=== PATIENT | male | born 1980 | race Caucasian/White ===

== ENCOUNTER 2017-04-05 09:04 | Inpatient (IN) | payer BC, OTHER ==
[~2017-04-05] VITALS: Ht 188 cm; Wt 123.5 kg
[2017-04-05] VITALS (13 sets, daily range): BP systolic 129–194; BP diastolic 62–90; PULSE 38–64; RESP 16–18; TEMP 97.2–98.3; O2SAT 94–100
[~2017-04-05 09:04] MED LIST: ARIP30 PO; CLON.5 PO; EFFE150C PO; MECL25 PO
[2017-04-05] MEDS ORDERED: HYDR12.57 PO (09:37)
[2017-04-05] MEDS ORDERED: ABIL30TA5 PO (09:37)
--- NOTE | 2017-04-05 10:11 | PD ---
HPI Chief Complaint: Flank/Kidney Pain Time Seen by Provider: 09:31 Travel History International Travel<30 days: No Contact w/Intl Traveler<30days: No Traveled to known affect area: No History of Present Illness HPI 37yo M with no PMH presents to the ED with c/o right sided flank/abdominal pain since 7am this morning. Pain is sharp, constant and associated with nausea and NBNB vomiting. Denies any fever, chest pain, sob, dysuria, hematuria, testicular pain, penile discharge. Denies any history of nephrolithiasis. PFSH Past Medical History Bipolar Disorder: Yes Depression: Yes Cancer: No Cardiovascular Problems: Yes (htn on meds) Diabetes: No Glaucoma: No Hepatitis: No Hiatal Hernia: No Hypertension: Yes Thyroid Disease: No Tetanus Vaccination: > 5 Years Influenza Vaccination: Yes Past Surgical History Abdominal Surgery: No Cardiac Surgery: No Ear Surgery: No Endocrine Surgery: No Genitourinary Surgery: No Gynecologic Surgery: No Oral Surgery: No Pacemaker: No Thoracic Surgery: No Other Surgery: Yes Social History Alcohol Use: No Tobacco Use: No Substance Use: No Allergies-Medications (Allergen,Severity, Reaction): Coded Allergies: No Known Allergies (Verified Allergy, Unknown, 04/05/17) Reported Meds & Prescriptions Reported Meds & Active Scripts Active Reported Hydrochlorothiazide 12.5 Mg Cap Unknown Dose PO DAILY Abilify (Aripiprazole) 30 Mg Tab 30 Mg PO DAILY Review of Systems Except as stated in HPI: all other systems reviewed are Neg Physical Exam Narrative GENERAL: 37yo M in moderate distress. SKIN: Focused skin assessment warm/dry. HEAD: Atraumatic. Normocephalic. CARDIOVASCULAR: Regular rate and rhythm. No murmur appreciated. RESPIRATORY: No accessory muscle use. Clear to auscultation. Breath sounds equal bilaterally. GASTROINTESTINAL: Abdomen soft, +TTP right flank > RUQ, RLQ. No rebound tenderness or guarding. MUSCULOSKELETAL: No obvious deformities. No clubbing. No cyanosis. No edema. NEUROLOGICAL: Awake and alert. No obvious cranial nerve deficits. Motor grossly within normal limits. Normal speech. PSYCHIATRIC: Appropriate mood and affect; insight and judgment normal. Data Data Last Documented VS Vital Signs Date Time Temp Pulse Resp B/P (MAP) Pulse Ox O2 Delivery O2 Flow Rate FiO2 04/05/17 12:52 59 18 166/79 (108) 97 Room Air 04/05/17 09:23 97.2 Orders Orders Urinalysis - C+S If Indicated (04/05/17 09:19) Complete Blood Count With Diff (04/05/17 10:07) Comprehensive Metabolic Panel (04/05/17 10:07) Lipase (04/05/17 10:07) Prothrombin Time / Inr (Pt) (04/05/17 10:07) Act Partial Throm Time (Ptt) (04/05/17 10:07) Ct Abd/Pel W Iv Contrast(Rout) (04/05/17 10:07) Iv Access Insert/Monitor (04/05/17 10:07) Ecg Monitoring (04/05/17 10:07) Oximetry (04/05/17 10:07) Sodium Chloride 0.9% Flush (Ns Flush) (04/05/17 10:15) Ondansetron Inj (Zofran Inj) (04/05/17 10:15) Ketorolac Inj (Toradol Inj) (04/05/17 10:15) Sodium Chlor 0.9% 1000 Ml Inj (Ns 1000 M (04/05/17 10:15) Morphine Inj (Morphine Inj) (04/05/17 11:30) Chest, Single Ap (04/05/17 ) Electrocardiogram (04/05/17 ) Consult Cardiology (04/05/17 ) Admit Order (Ed Use Only) (04/05/17 13:14) Labs Laboratory Tests Test 04/05/17 10:05 04/05/17 10:15 Urine Collection Type CLEAN CATCH Urine Color YELLOW Urine Turbidity CLEAR Urine pH 8.5 Urine Specific [place] 1.012 Urine Protein TRACE mg/dL Urine Glucose (UA) NEG mg/dL Urine Ketones TRACE mg/dL Urine Occult Blood NEG Urine Nitrite NEG Urine Bilirubin NEG Urine Leukocyte Esterase NEG Urine RBC 0-3 /hpf Urine Squamous Epithelial Cells 0-5 /hpf Microscopic Urinalysis Comment CULT NOT INDICATED Urine Collection Time 10:05 White Blood Count 11.5 TH/MM3 Red Blood Count 5.48 MIL/MM3 Hemoglobin 15.6 GM/DL Hematocrit 46.7 % Mean Corpuscular Volume 85.3 FL Mean Corpuscular Hemoglobin 28.6 PG Mean Corpuscular Hemoglobin Concent 33.5 % Red Cell Distribution Width 13.3 % Platelet Count 318 TH/MM3 Mean Platelet Volume 8.4 FL Neutrophils (%) (Auto) 64.4 % Lymphocytes (%) (Auto) 25.9 % Monocytes (%) (Auto) 7.8 % Eosinophils (%) (Auto) 1.2 % Basophils (%) (Auto) 0.7 % Neutrophils # (Auto) 7.4 TH/MM3 Lymphocytes # (Auto) 3.0 TH/MM3 Monocytes # (Auto) 0.9 TH/MM3 Eosinophils # (Auto) 0.1 TH/MM3 Basophils # (Auto) 0.1 TH/MM3 CBC Comment DIFF FINAL Differential Comment Prothrombin Time 10.9 SEC Prothromb Time International Ratio 1.0 RATIO Activated Partial Thromboplast Time 27.5 SEC Blood Urea Nitrogen 13 MG/DL Creatinine 1.20 MG/DL Random Glucose 121 MG/DL Total Protein 8.2 GM/DL Albumin 4.4 GM/DL Calcium Level 10.5 MG/DL Alkaline Phosphatase 71 U/L Aspartate Amino Transf (AST/SGOT) 21 U/L Alanine Aminotransferase (ALT/SGPT) 42 U/L Total Bilirubin 1.0 MG/DL Sodium Level 141 MEQ/L Potassium Level 3.7 MEQ/L Chloride Level 105 MEQ/L Carbon Dioxide Level 25.3 MEQ/L Anion Gap 11 MEQ/L Estimat Glomerular Filtration Rate 68 ML/MIN Lipase 135 U/L [facility] Medical Decision Making Medical Screen Exam Complete: Yes Emergency Medical Condition: Yes Interpretation(s) EKG: Supraventricular bradycardia at 40bpm. Normal axis. There are some p waves but not in front of each QRS. Differential Diagnosis Nephrolithiasis vs. pyelonephritis vs. pancreatitis vs. cholecystitis vs. appendicitis Narrative Course 37yo M here with right sided flank pain since 7am this morning. Impression is nephrolithiasis. Labs reviewed, WBC 11.5. Calcium mildly elevated at 10.5. Lipase normal. UA showed trace ketones. No leukocyte. CT a/p showed 3mm stone right UVJ with mild to moderate obstruction. Pt given toradol but still with pain. Pt given morphine with improvement of pain. Nausea improved after zofran and NS IVF. It was noted that pt's heart rate went down to the 30s on the monitor. EKG showed supraventricular bradycardia with p waves in some QRS complex and NV shortening. Pt denies any chest pain or sob. He is adopted and not sure about family history. Last EKG was NSR in the 80s with 1st AV block. Pt noted to have low O2 sat in the high 80s to low 90. Pt given 2L NC. Denies any chest pain or sob. Abdominal pain has improved after morphine. CXR showed mild cardiac prominence. Feel that pt needs a cardiology evaluation and discussed with Dr. Hassan who is aware pt is being transferred to [facility]. Discussed with Dr. Dillon who accepted the patient to her service. Critical Care Narrative Aggregate critical care time was 50 minutes. Time to perform other separately billable procedures was not included in the critical care time. My time did not include minutes spent treating any other patients simultaneously or on activities that did not directly contribute to the patient's treatment. The services I provided to this patient were to treat and/or prevent clinically significant deterioration that could result in: cardiovascular collapse or . I provided critical care services requiring my management, as noted below: Chart data review, documentation time, medication orders and management, vital sign assessments/reviewing monitor data, ordering and reviewing lab tests, ordering and interpreting/reviewing x-rays and diagnostic studies, care of the patient and discussion of the patient with the admitting physicians. Diagnosis Primary Impression: Bradyarrhythmia Additional Impression: Nephrolithiasis Admitting Information Admitting Physician Requests: Admit Scripts Hydrocodone/Acetaminophen (Hydrocodone-Acetamin 5-325 mg) 5 Mg-325 Mg Tablet 1 TAB PO Q6HR Y for pain, #12 TAB Prov: Shelby Lao MD 04/06/17 Yarely Smith DO Apr 05, 2017 10:11
[2017-04-05 10:13] LABS: BLOOD, URINE NEG (NEG); GLUCOSE,URINE NEG (NEG); KETONE, URINE TRACE mg/dL (NEG); NITRITE,URINE NEG (NEG); PH, URINE 8.5 (5.0-8.5)
[2017-04-05] MEDS ORDERED: SODIUM CHLOR 0.9% 1000 ML INJ 1,000 ML IV ONE (10:15)
[2017-04-05] MEDS ORDERED: SODIUM CHLORIDE 0.9% FLUSH 10 ML FLUSH IV FLUSH PRN ×2 (10:15→14:30)
[2017-04-05] MEDS ORDERED: KETOROLAC TROMETHAMINE 30 MG/ML (IVP) VIAL IV PUSH ONE (10:15)
[2017-04-05] MEDS ORDERED: ONDANSETRON HCL 4 MG/2 ML VIAL IV PUSH ONE (10:15)
[2017-04-05 10:19] LABS: METHOD OF COLLECTION CLEAN CATCH; URINE COLOR YELLOW (YELLW/STRAW)
[2017-04-05 10:20] LABS: COMMENT (UR) CULT NOT INDICATED; CULTURE IF INDICATED CULT NOT INDICATED; RBC, URINE 0-3 /hpf (0-3); SQUAMOUS EPITHELIAL CELL URINE 0-5 /hpf (0-5)
[2017-04-05 10:25] LABS: AUTOMATED NEUTROPHIL # 7.4 TH/MM3 (1.8-7.7); BASOPHIL # 0.1 TH/MM3 (0-0.2); BASOPHIL % 0.7 % (0.0-2.0); EOSINOPHIL # 0.1 TH/MM3 (0-0.4); EOSINOPHIL % 1.2 % (0.0-4.0); HEMATOCRIT 46.7 % (39.0-51.0); HEMO FLAGS DIFF FINAL; LYMPH % 25.9 % (9.0-44.0); MEAN CELL VOLUME 85.3 FL (80.0-100.0); MEAN CORPUSCULAR HEMOGLOBIN 28.6 PG (27.0-34.0); MEAN CORPUSCULAR HGB CONC 33.5 % (32.0-36.0); MONO % 7.8 % (0.0-8.0); NEUT % 64.4 % (16.0-70.0); PLATELET COUNT 318 TH/MM3 (150-450); RED BLOOD COUNT 5.48 MIL/MM3 (4.50-5.90); RED CELL DISTRIBUTION WIDTH 13.3 % (11.6-17.2); WHITE BLOOD COUNT 11.5 TH/MM3 (4.0-11.0)
[2017-04-05] MEDS ORDERED: IOHEXOL 350 MG/ML 10 ML VIAL (for RAD DIAG) IVCONTRAST ONE (10:25)
[2017-04-05 10:33] LABS: CHLORIDE 105 MEQ/L (98-107); POTASSIUM 3.7 MEQ/L (3.5-5.1); SODIUM (NA) 141 MEQ/L (136-145)
[2017-04-05 10:37] LABS: APTT (PATIENT) 27.5 SEC (24.3-30.1); PROTHROMBIN TIME - PATIENT 10.9 SEC (9.8-11.6)
[2017-04-05 10:38] LABS: ANION GAP 11 MEQ/L (5-15); BICARBONATE 25.3 MEQ/L (21.0-32.0); BLOOD UREA NITROGEN 13 MG/DL (7-18)
--- NOTE | 2017-04-05 10:40 | RADRPT ---
EXAM DATE/TIME: 04/05/2017 10:25 [facility] COMPARISON: No previous studies available for comparison. INDICATIONS : Right lower quadrant pain, nausea and vomiting. IV CONTRAST: 85 cc Omnipaque 350 (iohexol) IV ORAL CONTRAST: No oral contrast ingested. RADIATION DOSE: 21.04 CTDIvol (mGy) MEDICAL HISTORY : Hypertension. SURGICAL HISTORY : None. ENCOUNTER: Initial ACUITY: 1 day PAIN SCALE: 10/10 LOCATION: Right lower quadrant TECHNIQUE: Volumetric scanning of the abdomen and pelvis was performed. Using automated exposure control and ad justment of the mA and/or kV according to patient size, radiation dose was kept as low as reasonably achievable to obtain optimal diagnostic quality images. DICOM format image data is available electro nically for review and comparison. FINDINGS: The lung basses are clear. There is mild fatty replacement to the liver The spleen, pancreas and adrenals unremarkable The left kidney is unremarkable There is perinephric stranding about the right kidney with dilated right ureter extending down to the right ureterovesical junction. 3 mm obstructing stone is evident. Prostate calcifications are evident Abdominal wall is intact There is no adenopathy CONCLUSION: 1. 3 mm stone right UVJ with [id number] obstruction. 2. No residual renal stones 3. Mild fatty replacement liver. Manuel Maloney MD FACR on April 05, 2017 at 10:36 Board Certified Radiologist. This report was verified electronically.
[2017-04-05 10:41] LABS: ALT (GPT) 42 U/L (12-78); AST (GOT) 21 U/L (15-37); GLOMERULAR FILTRATION RATE 68 ML/MIN (>89)
[2017-04-05 10:44] LABS: ALKALINE PHOSPHATASE 71 U/L (45-117)
[2017-04-05] MEDS ORDERED: MORPHINE SULFATE 8 MG/ML INJ IV PUSH ONE (11:30)
--- NOTE | 2017-04-05 12:41 | RADRPT ---
EXAM DATE/TIME: 04/05/2017 12:19 [facility] COMPARISON: No previous studies available for comparison. INDICATIONS : Right flank pain and increased blood pressure. MEDICAL HISTORY : Hypertension. SURGICAL HISTORY : None. ENCOUNTER: Initial ACUITY: 1 day PAIN SCORE: 10/10 LOCATION: Right lower chest ,upper abdoman posterior FINDINGS: A single view of the chest demonstrates the lungs to be symmetrically aerated without evidence of mas s, infiltrate or effusion. Mild prominence the cardiac silhouette. Osseous structures are intact. CONCLUSION: Mild cardiac prominence Manuel Maloney MD FACR on April 05, 2017 at 12:38 Board Certified Radiologist. This report was verified electronically.
[2017-04-05] MEDS ORDERED: NALOXONE HCL 0.4 MG/ML AMP IV PUSH PRN (14:30)
[2017-04-05] MEDS ORDERED: ONDANSETRON HCL 4 MG/2 ML VIAL IVP PRN (14:30)
[2017-04-05] MEDS ORDERED: ACETAMINOPHEN 325 MG TAB PO PRN (14:30)
[2017-04-05 15:22] LABS: CREATINE KINASE 210 U/L (39-308)
--- NOTE | 2017-04-05 17:14 | PD.CONS ---
HPI Consult Requested By Primary Care Physician Brad Donaldson MD History of Present Illness 37yo M with no PMH presents to the ED with c/o right sided flank/abdominal pain since 7am this morning. Pain is sharp, constant and associated with nausea and NBNB vomiting. Denies any fever, chest pain, palpitations syncope, sob, leg edema of family hx of sudden cardiac . Cardiology consulted because of abnormal EKG. EKG shows short [place] interval and sinus bradycardia. Review of Systems Consitutional: DENIES: Fatigue, Fever, Chills, Weight gain, Weight loss Eyes: DENIES: Amaurosis Fug[place], Change in vision HEENT: DENIES: Lightheadedness, Change in hearing Respiratory: DENIES: See HPI, Cough, Snoring, Shortness of breath, Wheezing, Sputum production Cardiovascular: DENIES: See HPI, Chest pain, Palpitations, Syncope, Tachycardia Gastrointestinal: DENIES: Nausea, Vomiting, Change in bowel habits, Reflux, Bloody stools, Melena Genitourinary: DENIES: Urinary incontinence, Difficulty voiding Integumentary: DENIES: Rash Neurologic: DENIES: Tingling or numbness, Memory problems, Poor Balance, Stroke symptoms Musculoskeletal: DENIES: Joint pain, Muscle pain, Limited range of motion, Back pain Psychiatric: DENIES: Anxiety, Depression, Sleep disturbances Hematologic: DENIES: Bruising tendencies, Bleeding tendencies Endocrine: DENIES: Weight gain, Weight loss, Thyroid disease Past Family Social History Allergies: Coded Allergies: No Known Allergies (Verified Allergy, Unknown, 04/05/17) Past Medical History Questionable history of celiac sprue at the age of 12 Steatohepatitis without fibrosis per liver biopsy 09/23/2008 Bipolar depression Gastroesophageal reflux disease Hypertension Past Surgical History Liver biopsy 09/23/2008 Colonoscopy at age 30 and 35 - initial one done for rectal bleeding revealed a polyp and a second one done at age 35 was done for follow-up and was negative. Right medial meniscus tear with arthroscopy and partial synovectomy along with repair of tear on 05/08/[address] Rupal Gastelum tooth removal Upper endoscopy age 12 Reported Medications Reported Meds & Active Scripts Active Reported Hydrochlorothiazide 12.5 Mg Cap Unknown Dose PO DAILY Abilify (Aripiprazole) 30 Mg Tab 30 Mg PO DAILY Active Ordered Medications Current Medications Medications (Trade) Dose Ordered Sig/Shay Route Start Time Stop Time Status Last Admin (NS Flush) 2 ml UNSCH PRN IV FLUSH 04/05/17 10:15 (NS Flush) 2 ml UNSCH PRN IV FLUSH 04/05/17 14:30 (NS Flush) 2 ml BID IV FLUSH 04/05/17 21:00 (Tylenol) 650 mg Q4H PRN PO 04/05/17 14:30 (Zofran Inj) 4 mg Q6H PRN IVP 04/05/17 14:30 (Narcan Inj) 0.4 mg UNSCH PRN IV PUSH 04/05/17 14:30 Family History Unknown as patient is adopted Social History Tobacco: Denies ever smoking Alcohol: Denies alcohol use Illicit Drugs: Denies illicit drug use Physical Exam Vital Signs Vital Signs Date Time Temp Pulse Resp B/P (MAP) Pulse Ox O2 Delivery O2 Flow Rate FiO2 04/05/17 16:30 98.3 53 18 140/74 (96) 96 04/05/17 15:30 82 18 129/62 (84) 98 04/05/17 14:16 53 17 154/70 (98) 97 Room Air 04/05/17 13:18 16 04/05/17 12:52 59 18 166/79 (108) 97 Room Air 04/05/17 11:40 46 16 160/68 (98) 96 Room Air 04/05/17 10:46 38 16 171/77 (108) 94 Room Air 04/05/17 10:09 96 Room Air 04/05/17 09:23 97.2 50 16 194/90 (124) 100 Physical Exam GENERAL: Well-nourished, well-developed patient. SKIN: Warm and dry. HEAD: Normocephalic. EYES: No scleral icterus. No injection or drainage. NECK: Supple, trachea midline. No JVD or lymphadenopathy. CARDIOVASCULAR: Regular rate and rhythm without murmurs, gallops, or rubs. RESPIRATORY: Breath sounds equal bilaterally. No accessory muscle use. GASTROINTESTINAL: Abdomen soft, non-tender, nondistended. EXTREMITIES: No cyanosis, or edema. NEUROLOGICAL: Awake, alert, and oriented x 3. Non-focal. Laboratory Laboratory Tests Test 04/05/17 10:05 04/05/17 10:15 04/05/17 14:45 Urine Collection Type CLEAN CATCH Urine Color YELLOW Urine Turbidity CLEAR Urine pH 8.5 Urine Specific [place] 1.012 Urine Protein TRACE Urine Glucose (UA) NEG Urine Ketones TRACE Urine Occult Blood NEG Urine Nitrite NEG Urine Bilirubin NEG Urine Leukocyte Esterase NEG Urine RBC 0-3 Urine Squamous Epithelial Cells 0-5 Microscopic Urinalysis Comment CULT NOT INDICATED Urine Collection Time 10:05 White Blood Count 11.5 Red Blood Count 5.48 Hemoglobin 15.6 Hematocrit 46.7 Mean Corpuscular Volume 85.3 Mean Corpuscular Hemoglobin 28.6 Mean Corpuscular Hemoglobin Concent 33.5 Red Cell Distribution Width 13.3 Platelet Count 318 Mean Platelet Volume 8.4 Neutrophils (%) (Auto) 64.4 Lymphocytes (%) (Auto) 25.9 Monocytes (%) (Auto) 7.8 Eosinophils (%) (Auto) 1.2 Basophils (%) (Auto) 0.7 Neutrophils # (Auto) 7.4 Lymphocytes # (Auto) 3.0 Monocytes # (Auto) 0.9 Eosinophils # (Auto) 0.1 Basophils # (Auto) 0.1 CBC Comment DIFF FINAL Differential Comment Prothrombin Time 10.9 Prothromb Time International Ratio 1.0 Activated Partial Thromboplast Time 27.5 Blood Urea Nitrogen 13 Creatinine 1.20 Random Glucose 121 Total Protein 8.2 Albumin 4.4 Calcium Level 10.5 Alkaline Phosphatase 71 Aspartate Amino Transf (AST/SGOT) 21 Alanine Aminotransferase (ALT/SGPT) 42 Total Bilirubin 1.0 Sodium Level 141 Potassium Level 3.7 Chloride Level 105 Carbon Dioxide Level 25.3 Anion Gap 11 Estimat Glomerular Filtration Rate 68 Lipase 135 Total Creatine Kinase 210 Troponin I LESS THAN 0.02 Result Diagram: 04/05/17 1015 04/05/17 1015 Imaging Last Impressions Abdomen/Pelvis CT 04/05/17 1007 Signed Impressions: Service Date/Time: Wednesday, April 05, 2017 10:25 - CONCLUSION: 1. 3 mm stone right UVJ with [id number] obstruction. 2. No residual renal stones 3. Mild fatty replacement liver. Manuel Maloney MD FACR Chest X-Ray 04/05/17 0000 Signed Impressions: Service Date/Time: Wednesday, April 05, 2017 12:19 - CONCLUSION: Mild cardiac prominence Manuel Maloney MD FACR Assessment and Plan Problem List: (1) Bradyarrhythmia ICD Codes: I49.8 - Other specified cardiac arrhythmias Status: Acute Plan: Asymptomatic bradyarrhythmia in the setting of kidney stones/infection. No events on telemetry. EKG short [place] interval but no hx of palpitations, CV complaints. Telemetry unremarkable. EKG back to baseline. Recs: Cycle cardiac markers 2Decho Telemetry Avoid electrolytes abnormalities Holter on discharge Follow with Cardiology upon discharge (2) Nephrolithiasis ICD Codes: N20.0 - Calculus of kidney Status: Acute Hassan-Darien Sales MD Apr 05, 2017 17:14
[2017-04-05] MEDS ORDERED: MORPHINE SULFATE 4 MG/ML INJ IV PUSH PRN (20:00)
[2017-04-05] MEDS ORDERED: ACETAMINOPHEN/HYDROcodone 325 MG/5 MG TAB PO PRN (20:00)
--- NOTE | 2017-04-05 20:43 | HHI.HP ---
[facility] Service [facility] Primary Care Physician Brad Donaldson MD Admission Diagnosis Supraventricular bradycardia, right UVJ stone Diagnoses: (1) Bradyarrhythmia (2) Nephrolithiasis Chief Complaint: Right flank pain Travel History International Travel<30 Days: No Contact w/Intl Traveler <30 Da: No Traveled to Known Affected Are: No History of Present Illness Mr. Parra is a very pleasant 37-year-old male with a history of hypertension, bipolar disorder, and GERD who presented to the [place] emergency room on complaining of severe right flank pain. In abdominal/pelvis ultrasound showed 3 mm stone in the right ureterovesical junction with mild to moderate obstruction and no residual stones. Mild fatty liver was also noted. While in the emergency room, he was noted to have heart rate in the 30's and supraventricular bradyarrhythmia on 12-lead EKG with short KS interval and P waves connecting to T waves with nonspecific ST changes (HR 40). His most recent EKG in our EMR prior to that was 06/12/2010 and it showed sinus rhythm and first-degree AV block and nonspecific ST-T changes. Cardiology was consulted and the patient was transferred [facility] for further evaluation and treatment. The patient is seen in his hospital room. He reports right flank pain starting last 03/30/2017 but it only lasted for a few minutes and spontaneously resolved. He had no further pain until at 7 AM this morning after urination. He states the right flank pain was sharp, shooting and severe. He rated it 10 out of 10 and stated it was accompanied by significant nausea with vomiting which has since resolved. The pain persisted and he asked his father to take him to the emergency room. He reports the pain went away after morphine was given in the ED. He states it is currently a 2 out of 10 and is creeping back up. The patient denies any recent chest pain, syncope, shortness of breath, palpitations, dizziness, lightheadedness, fatigue, or weakness. He has never been told that he has a low heart rate in the past. He is unsure of his family medical history as he is adopted. Review of Systems Except as stated in HPI: all other systems reviewed are Neg Past Family Social History Past Medical History Questionable history of celiac sprue at the age of 12 Steatohepatitis without fibrosis per liver biopsy 09/23/2008 Bipolar depression Gastroesophageal reflux disease Hypertension Denies diabetes mellitus, heart disease, irregular cardiac rhythm, asthma, COPD , hepatitis, kidney problems, nephrolithiasis, DVT, PE, CVA, thyroid dysfunction , cancer, or seizures. . Past Surgical History Liver biopsy 09/23/2008 Colonoscopy at age 30 and 35 - initial one done for rectal bleeding revealed a polyp and a second one done at age 35 was done for follow-up and was negative. Right medial meniscus tear with arthroscopy and partial synovectomy along with repair of tear on 05/08/[address] Rupal Choidom tooth removal Upper endoscopy age 12 . Reported Medications Reported Meds & Active Scripts Active Reported Maxide 37.5/25 mg one half tab by mouth every morning Abilify (Aripiprazole) 30 Mg Tab 30 Mg PO DAILY Pantoprazole 20 mg by mouth twice a day . Allergies: Coded Allergies: No Known Allergies (Verified Allergy, Unknown, 04/05/17) Active Ordered Medications Current Medications Sodium Chloride (NS Flush) 2 ml UNSCH PRN IV FLUSH FLUSH AFTER USING IV ACCESS ; Start 04/05/17 at 10:15; Stop 04/05/17 at 20:13; Status DC Ondansetron HCl (Zofran Inj) 4 mg ONCE ONCE IV PUSH Last administered on 10:12; Start 04/05/17 at 10:15; Stop 04/05/17 at 10:16; Status DC Ketorolac Tromethamine (Toradol Inj) 30 mg ONCE ONCE IV PUSH Last administered on 04/05/17 10:12; Start 04/05/17 at 10:15; Stop 04/05/17 at 10:16 ; Status DC Sodium Chloride 1,000 ml @ 999 mls/hr BOLUS ONCE IV Last administered on 04/05 10:13; Start 04/05/17 at 10:15; Stop 04/05/17 at 11:15; Status DC Morphine Sulfate (Morphine Inj) 6 mg ONCE ONCE IV PUSH Last administered on 12:44; Start 04/05/17 at 11:30; Stop 04/05/17 at 11:33; Status DC Sodium Chloride (NS Flush) 2 ml UNSCH PRN IV FLUSH FLUSH AFTER USING IV ACCESS ; Start 04/05/17 at 14:30 Sodium Chloride (NS Flush) 2 ml BID IV FLUSH Last administered on 04/05/17t 21: 00; Start 04/05/17 at 21:00 Acetaminophen (Tylenol) 650 mg Q4H PRN PO TEMP > 100.4/pain 1 - 3; Start at 14:30 Ondansetron HCl (Zofran Inj) 4 mg Q6H PRN IVP NAUSEA OR VOMITING; Start at 14:30 Naloxone HCl (Narcan Inj) 0.4 mg UNSCH PRN IV PUSH SEE LABEL COMMENTS; Start 04/05/17 at 14:30 Pneumococcal Polyvalent Vaccine (Pneumovax-23 Inj) 25 mcg ONCE ONCE IM ; Start 04/06/17 at 10:00; Stop 04/06/17 at 10:01 Morphine Sulfate (Morphine Inj) 3 mg Q3H PRN IV PUSH pain 7 - 10; Start at 20:00 Acetaminophen/ Hydrocodone Bitart ([place] 5-325 Mg) 1 tab Q4H PRN PO pain 4-6; Start 04/05/17 at 20:00 Triamterene/HCTZ (Dyazide 37.5-25 Mg) 0.5 cap DAILY PO ; Start 04/06/17 at 09:00 ; Stop 04/06/17 at 09:00; Status DC Triamterene/HCTZ (Maxzide 37.5-25 Mg) 0.5 tab DAILY PO ; Start 04/06/17 at 09:00 Pantoprazole Sodium (Protonix) 20 mg Q12HR PO ; Start 04/05/17 at 21:45 Miscellaneous (Pill Splitter) 1 ea UNSCH PRN OTHER SEE LABEL COMMENTS; Start 04/05/17 at 21:45 . Family History Unknown as patient is adopted . Social History Tobacco: Denies ever smoking Alcohol: Denies alcohol use Illicit Drugs: Denies illicit drug use . Physical Exam Vital Signs Vital Signs Date Time Temp Pulse Resp B/P (MAP) Pulse Ox O2 Delivery O2 Flow Rate FiO2 04/05/17 18:01 55 04/05/17 16:30 98.3 53 18 140/74 (96) 96 04/05/17 15:30 82 18 129/62 (84) 98 04/05/17 14:16 53 17 154/70 (98) 97 Room Air 04/05/17 13:18 16 04/05/17 12:52 59 18 166/79 (108) 97 Room Air 04/05/17 11:40 46 16 160/68 (98) 96 Room Air 04/05/17 10:46 38 16 171/77 (108) 94 Room Air 04/05/17 10:09 96 Room Air 04/05/17 09:23 97.2 50 16 194/90 (124) 100 Physical Exam GENERAL: This is a very pleasant overweight male patient, in no apparent distress. SKIN: No rashes, ecchymoses or lesions. Cool and dry. HEAD: Atraumatic. Normocephalic. EYES: No scleral icterus. No injection or drainage. ENT: Nose without bleeding, purulent drainage. NECK: Trachea midline. No JVD or lymphadenopathy. CARDIOVASCULAR: Bradycardic rate and rhythm without murmurs, gallops, or rubs. RESPIRATORY: Clear to auscultation. Breath sounds equal bilaterally. No wheezes , rales, or rhonchi. GASTROINTESTINAL: Abdomen soft, non-tender, nondistended. No guarding. MUSCULOSKELETAL: Extremities without clubbing, cyanosis, or edema. No calf tenderness. NEUROLOGICAL: Awake and alert. Motor and sensory grossly within normal limits. Normal speech. . Laboratory Laboratory Tests Test 04/05/17 10:05 04/05/17 10:15 04/05/17 14:45 Urine Collection Type CLEAN CATCH Urine Color YELLOW Urine Turbidity CLEAR Urine pH 8.5 Urine Specific [place] 1.012 Urine Protein TRACE Urine Glucose (UA) NEG Urine Ketones TRACE Urine Occult Blood NEG Urine Nitrite NEG Urine Bilirubin NEG Urine Leukocyte Esterase NEG Urine RBC 0-3 Urine Squamous Epithelial Cells 0-5 Microscopic Urinalysis Comment CULT NOT INDICATED Urine Collection Time 10:05 White Blood Count 11.5 Red Blood Count 5.48 Hemoglobin 15.6 Hematocrit 46.7 Mean Corpuscular Volume 85.3 Mean Corpuscular Hemoglobin 28.6 Mean Corpuscular Hemoglobin Concent 33.5 Red Cell Distribution Width 13.3 Platelet Count 318 Mean Platelet Volume 8.4 Neutrophils (%) (Auto) 64.4 Lymphocytes (%) (Auto) 25.9 Monocytes (%) (Auto) 7.8 Eosinophils (%) (Auto) 1.2 Basophils (%) (Auto) 0.7 Neutrophils # (Auto) 7.4 Lymphocytes # (Auto) 3.0 Monocytes # (Auto) 0.9 Eosinophils # (Auto) 0.1 Basophils # (Auto) 0.1 CBC Comment DIFF FINAL Differential Comment Prothrombin Time 10.9 Prothromb Time International Ratio 1.0 Activated Partial Thromboplast Time 27.5 Blood Urea Nitrogen 13 Creatinine 1.20 Random Glucose 121 Total Protein 8.2 Albumin 4.4 Calcium Level 10.5 Alkaline Phosphatase 71 Aspartate Amino Transf (AST/SGOT) 21 Alanine Aminotransferase (ALT/SGPT) 42 Total Bilirubin 1.0 Sodium Level 141 Potassium Level 3.7 Chloride Level 105 Carbon Dioxide Level 25.3 Anion Gap 11 Estimat Glomerular Filtration Rate 68 Lipase 135 Total Creatine Kinase 210 Troponin I LESS THAN 0.02 Result Diagram: 04/05/17 1015 04/05/17 1015 Imaging Last Impressions Abdomen/Pelvis CT 04/05/17 1007 Signed Impressions: Service Date/Time: Wednesday, April 05, 2017 10:25 - CONCLUSION: 1. 3 mm stone right UVJ with [id number] obstruction. 2. No residual renal stones 3. Mild fatty replacement liver. Manuel Maloney MD FACR Chest X-Ray 04/05/17 0000 Signed Impressions: Service Date/Time: Wednesday, April 05, 2017 12:19 - CONCLUSION: Mild cardiac prominence Manuel Maloney MD FACR . Caprini VTE Risk Assessment Caprini VTE Risk Assessment: No/Low Risk (score <= 1) Caprini Risk Assessment Model Point Value = 1 Point Value = 2 Point Value = 3 Point Value = 5 Age 41-60 Minor surgery BMI > 25 kg/m2 Swollen legs Varicose veins or History of unexplained or recurrent spontaneous Oral contraceptives or hormone replacement Sepsis (< 1 month) Serious lung disease, including pneumonia (< 1 month) Abnormal pulmonary function Acute myocardial infarction Congestive heart failure (< 1 month) History of inflammatory bowel disease Medical patient at bed rest Age 61-74 Arthroscopic surgery Major open surgery (> 45 min) Laparoscopic surgery (> 45 min) Malignancy Confined to bed (> 72 hours) Immobilizing plaster cast Central venous access Age >= 75 History of VTE Family history of VTE Factor V Leiden Prothrombin [id number] Lupus anticoagulant Anticardiolipin antibodies Elevated serum homocysteine Heparin-induced thrombocytopenia Other congenital or acquired thrombophilia Stroke (< 1 month) Elective arthroplasty Hip, pelvis, or leg fracture Acute spinal cord injury (< 1 month) Prophylaxis Regimen Total Risk Factor Score Risk Level Prophylaxis Regimen 0-1 Low Early ambulation 2 Moderate Order ONE of the following: *Sequential Compression Device (SCD) *Heparin 5000 units SQ BID 3-4 Higher Order ONE of the following medications: *Heparin 5000 units SQ TID *Enoxaparin/Lovenox 40 mg SQ daily (WT < 150 kg, CrCl > 30 mL/min) *Enoxaparin/Lovenox 30 mg SQ daily (WT < 150 kg, CrCl > 10-29 mL/min) *Enoxaparin/Lovenox 30 mg SQ BID (WT < 150 kg, CrCl > 30 mL/min) AND/OR *Sequential Compression Device (SCD) 5 or more Highest Order ONE of the following medications: *Heparin 5000 units SQ TID (Preferred with Epidurals) *Enoxaparin/Lovenox 40 mg SQ daily (WT < 150 kg, CrCl > 30 mL/min) *Enoxaparin/Lovenox 30 mg SQ daily (WT < 150 kg, CrCl > 10-29 mL/min) *Enoxaparin/Lovenox 30 mg SQ BID (WT < 150 kg, CrCl > 30 mL/min) AND *Sequential Compression Device (SCD) Assessment and Plan Problem List: (1) Bradyarrhythmia ICD Code: I49.8 - Other specified cardiac arrhythmias Status: Acute (2) Nephrolithiasis ICD Code: N20.0 - Calculus of kidney Status: Acute (3) Bipolar disorder ICD Code: F31.9 - Bipolar disorder, unspecified Assessment and Plan Mr. Parra is a very pleasant 37-year-old male with a history of hypertension, bipolar disorder, and GERD who presented to the [place] emergency room on complaining of severe right flank pain. In abdominal/pelvis ultrasound showed 3 mm stone in the right ureterovesical junction with mild to moderate obstruction and no residual stones. Mild fatty liver was also noted. While in the emergency room, he was noted to have heart rate in the 30's and supraventricular bradyarrhythmia on 12-lead EKG with short KS interval and P waves connecting to T waves with nonspecific ST changes (HR 40). His most recent EKG in our EMR prior to that was 06/12/2010 and it showed sinus rhythm and first-degree AV block and nonspecific ST-T changes. Cardiology was consulted and the patient was transferred [facility] for further evaluation and treatment. Nephrolithiasis with mild to moderate obstruction of right UVJ - Consult urology - Encourage by mouth fluids - By mouth [place] and IV morphine as needed for pain - Strain urine Supraventricular bradyarrhythmia, asymptomatic - Possibly related to bipolar medication Abilify - Hold Abilify - Trend serial cardiac enzymes to rule out ACS - Cardiology consulted Bipolar disorder - Plan to hold Abilify as possible iatrogenic cause of bradyarrhythmia - Psychiatry consulted to assist with medication management - Patient sees Dr. Darlene López as an outpatient Hypertension - Resume home Maxzide - Follow trends in blood pressure readings and adjust treatment if indicated GERD - Resume home pantoprazole DVT prophylaxis - Early ambulation . Discussed Condition With Dr. Holly and patient . Physician Certification 2 Midnight Certification Type: Admission for Inpatient Services Order for Inpatient Services The services are ordered in accordance with Medicare regulations or non- Medicare payer requirements, as applicable. In the case of services not specified as inpatient-only, they are appropriately provided as inpatient services in accordance with the 2-midnight benchmark. Estimated LOS (days): 3 days is the estimated time the patient will need to remain in the hospital, assuming treatment plan goals are met and no additional complications. Post-Hospital Plan: Home Gemini [facility]tz Apr 05, 2017 20:43
[2017-04-05] MEDS: SODIUM CHLORIDE 0.9% FLUSH 10 ML FLUSH IV FLUSH SCH (21:00)
[2017-04-05] MEDS ORDERED: PILL SPLITTER OTHER PRN (21:45)
[2017-04-05 23:19] LABS: CREATINE KINASE 173 U/L (39-308)
[2017-04-05] MEDS: PANTOPRAZOLE SOD 20 MG DELAYED RELEASE TAB PO SCH (23:25)
[2017-04-06] VITALS (17 sets, daily range): BP systolic 130–143; BP diastolic 69–90; PULSE 43–100; RESP 18–20; TEMP 97.6–98.7; O2SAT 95–98
[2017-04-06 06:06] LABS: BICARBONATE 30.1 MEQ/L (21.0-32.0); POTASSIUM 3.4 MEQ/L (3.5-5.1)
[2017-04-06] MEDS: PANTOPRAZOLE SOD 20 MG DELAYED RELEASE TAB PO SCH (08:43)
[2017-04-06] MEDS: SODIUM CHLORIDE 0.9% FLUSH 10 ML FLUSH IV FLUSH SCH (08:43)
[2017-04-06] MEDS ORDERED: TRIAMTERENE/HCTZ 37.5 MG/25 MG CAP PO SCH (09:00)
[2017-04-06] MEDS ORDERED: TRIAMTERENE/HCTZ 37.5 MG/25 MG TAB PO SCH (09:00)
[2017-04-06] MEDS ORDERED: PNEUMOCOCCAL POLYVALENT INJ 25 MCG/0.5 ML SYR IM ONE (10:00)
--- NOTE | 2017-04-06 10:53 | PD.CARD.PN ---
Subjective Subjective Remarks no cv complaints no events on telemetry Objective Medications Current Medications Medications (Trade) Dose Ordered Sig/Shay Route Start Time Stop Time Status Last Admin (NS Flush) 2 ml UNSCH PRN IV FLUSH 04/05/17 14:30 (NS Flush) 2 ml BID IV FLUSH 04/05/17 21:00 04/06/17 08:43 (Tylenol) 650 mg Q4H PRN PO 04/05/17 14:30 (Zofran Inj) 4 mg Q6H PRN IVP 04/05/17 14:30 (Narcan Inj) 0.4 mg UNSCH PRN IV PUSH 04/05/17 14:30 (Morphine Inj) 3 mg Q3H PRN IV PUSH 04/05/17 20:00 ([place] 5-325 Mg) 1 tab Q4H PRN PO 04/05/17 20:00 (Maxzide 37.5-25 Mg) 0.5 tab DAILY PO 04/06/17 09:00 04/06/17 10:49 (Protonix) 20 mg Q12HR PO 04/05/17 21:45 04/06/17 08:43 (Pill Splitter) 1 ea UNSCH PRN OTHER 04/05/17 21:45 Vital Signs / I&O Vital Signs Date Time Temp Pulse Resp B/P (MAP) Pulse Ox O2 Delivery O2 Flow Rate FiO2 04/06/17 08:30 Room Air 04/06/17 08:30 98.3 82 20 135/83 (100) 95 04/06/17 06:59 65 04/06/17 06:00 68 04/06/17 05:00 59 04/06/17 04:00 98.7 56 18 130/69 (89) 97 04/06/17 04:00 56 04/06/17 04:00 Room Air 04/06/17 03:00 47 04/06/17 02:00 50 04/06/17 01:00 45 04/06/17 00:00 Room Air 04/06/17 00:00 98.3 43 18 136/84 (101) 98 04/06/17 00:00 43 04/05/17 23:00 50 04/05/17 22:00 58 04/05/17 21:00 60 04/05/17 20:00 98.1 64 18 136/72 (93) 97 04/05/17 20:00 64 04/05/17 18:01 55 04/05/17 16:30 98.3 53 18 140/74 (96) 96 04/05/17 15:30 82 18 129/62 (84) 98 04/05/17 14:16 53 17 154/70 (98) 97 Room Air 04/05/17 13:18 16 04/05/17 12:52 59 18 166/79 (108) 97 Room Air 04/05/17 11:40 46 16 160/68 (98) 96 Room Air I/O 04/05/17 04/05/17 04/05/17 04/06/17 04/06/17 04/06/17 07:00 15:00 23:00 07:00 15:00 23:00 Intake Total 1000 ml 240 ml 960 ml Output Total 300 ml 450 ml 800 ml Balance 700 ml -210 ml 160 ml Intake Oral 240 ml 960 ml IV Total 1000 ml Output Urine Total 300 ml 450 ml 800 ml # Voids 1 1 # Bowel Movements 0 Physical Exam GENERAL: Well-nourished, well-developed patient. SKIN: Warm and dry. HEAD: Normocephalic. EYES: No scleral icterus. No injection or drainage. NECK: Supple, trachea midline. No JVD or lymphadenopathy. CARDIOVASCULAR: Regular rate and rhythm without murmurs, gallops, or rubs. RESPIRATORY: Breath sounds equal bilaterally. No accessory muscle use. GASTROINTESTINAL: Abdomen soft, non-tender, nondistended. EXTREMITIES: No cyanosis, or edema. NEUROLOGICAL: Awake, alert, and oriented x 3. Non-focal. Laboratory Laboratory Tests Test 04/05/17 14:45 04/05/17 22:30 04/06/17 05:08 Total Creatine Kinase 210 U/L 173 U/L Troponin I LESS THAN 0.02 NG/ML LESS THAN 0.02 NG/ML Blood Urea Nitrogen 14 MG/DL Creatinine 0.88 MG/DL Random Glucose 98 MG/DL Calcium Level 9.3 MG/DL Sodium Level 142 MEQ/L Potassium Level 3.4 MEQ/L Chloride Level 106 MEQ/L Carbon Dioxide Level 30.1 MEQ/L Anion Gap 6 MEQ/L Estimat Glomerular Filtration Rate 97 ML/MIN Imaging Last Impressions Abdomen/Pelvis CT 04/05/17 1007 Signed Impressions: Service Date/Time: Wednesday, April 05, 2017 10:25 - CONCLUSION: 1. 3 mm stone right UVJ with [id number] obstruction. 2. No residual renal stones 3. Mild fatty replacement liver. Manuel Maloney MD FACR Chest X-Ray 04/05/17 0000 Signed Impressions: Service Date/Time: Wednesday, April 05, 2017 12:19 - CONCLUSION: Mild cardiac prominence Manuel Maloney MD FACR Assessment and Plan Problem List: (1) Bradyarrhythmia ICD Codes: I49.8 - Other specified cardiac arrhythmias Status: Acute Plan: Asymptomatic bradycardia Sign off (2) Nephrolithiasis ICD Codes: N20.0 - Calculus of kidney Status: Acute Hassan-Darien Sales MD Apr 06, 2017 10:53
--- NOTE | 2017-04-06 12:42 | PD.CONS ---
HPI Service Urology Consult Requested By Reason for Consult Nephrolithiasis Primary Care Physician Brad Donaldson MD Diagnosis: (1) Bradyarrhythmia ICD Code: I49.8 - Other specified cardiac arrhythmias (2) Nephrolithiasis ICD Code: N20.0 - Calculus of kidney (3) Bipolar disorder ICD Code: F31.9 - Bipolar disorder, unspecified History of Present Illness 37-year-old male admitted for right flank pain. CT scan identified a right distal 3 mm stone located in the right UVJ. Patient currently at this time denies any abdominal or flank pain. Patient initially had significant and severe right flank pain, as sharp and stabbing located in the right flank and radiating to the right groin. He also had some irritative voiding symptoms. Patient reports the pain started several days ago however acutely worsened last night which brought him to the emergency department. No fevers, no hematuria. At this time again he is without any discomfort and it appears that he likely passed a small stone. This is his first stone episode. Review of Systems ROS Limitations: Clinical Condition Constitutional: DENIES: Fever Endocrine: DENIES: Heat/cold intolerance Eyes: DENIES: Blurred vision Ears, nose, mouth, throat: DENIES: Hearing loss Respiratory: DENIES: Cough Cardiovascular: DENIES: Chest pain Gastrointestinal: DENIES: Abdominal pain Genitourinary: COMPLAINS OF: Urinary frequency, DENIES: Hematuria Musculoskeletal: DENIES: Back pain Hematologic/lymphatic: DENIES: Bruising Neurologic: DENIES: Headache Psychiatric: DENIES: Anxiety Except as stated in HPI: all other systems reviewed are Neg Past Family Social History Past Medical History Steatohepatitis without fibrosis per liver biopsy 09/23/2008 Bipolar depression Gastroesophageal reflux disease Hypertension Past Surgical History Liver biopsy 09/23/2008 Colonoscopy at age 30 and 35 - initial one done for rectal bleeding revealed a polyp and a second one done at age 35 was done for follow-up and was negative. Right medial meniscus tear with arthroscopy and partial synovectomy along with repair of tear on 05/08/[address] Rupal Gastelum tooth removal Upper endoscopy age 12 Reported Medications Reported Meds & Active Scripts Active Hydrocodone-Acetamin 5-325 mg (Hydrocodone/Acetaminophen) 5 Mg-325 Mg Tablet 1 Tab PO Q6HR PRN Reported Hydrochlorothiazide 12.5 Mg Cap Unknown Dose PO DAILY Abilify (Aripiprazole) 30 Mg Tab 30 Mg PO DAILY Allergies: Coded Allergies: No Known Allergies (Verified Allergy, Unknown, 04/05/17) Family History Family history reviewed and noncontributory to present illness Social History Tobacco: Denies ever smoking Alcohol: Denies alcohol use Illicit Drugs: Denies illicit drug use Physical Exam Vital Signs Date Time Temp Pulse Resp B/P (MAP) Pulse Ox O2 Delivery O2 Flow Rate FiO2 04/06/17 12:12 97.6 62 20 143/90 (107) 98 04/06/17 08:30 Room Air 04/06/17 08:30 98.3 82 20 135/83 (100) 95 04/06/17 06:59 65 04/06/17 06:00 68 04/06/17 05:00 59 04/06/17 04:00 98.7 56 18 130/69 (89) 97 04/06/17 04:00 56 04/06/17 04:00 Room Air 04/06/17 03:00 47 04/06/17 02:00 50 04/06/17 01:00 45 04/06/17 00:00 Room Air 04/06/17 00:00 98.3 43 18 136/84 (101) 98 04/06/17 00:00 43 04/05/17 23:00 50 04/05/17 22:00 58 04/05/17 21:00 60 04/05/17 20:00 98.1 64 18 136/72 (93) 97 04/05/17 20:00 64 04/05/17 18:01 55 04/05/17 16:30 98.3 53 18 140/74 (96) 96 04/05/17 15:30 82 18 129/62 (84) 98 04/05/17 14:16 53 17 154/70 (98) 97 Room Air 04/05/17 13:18 16 04/05/17 12:52 59 18 166/79 (108) 97 Room Air Physical Exam GENERAL: This is a well-nourished, well-developed patient, in no apparent distress. SKIN: No rashes, ecchymoses or lesions. Cool and dry. HEAD: Atraumatic. Normocephalic. No temporal or scalp tenderness. EYES: Extraocular motions intact. No scleral icterus. No injection or drainage. ENT: Nose without bleeding, purulent drainage NECK: Trachea midline. No JVD or lymphadenopathy. . CARDIOVASCULAR: Normal pulses RESPIRATORY: Nonlabored GASTROINTESTINAL: Abdomen soft, non-tender, nondistended. MUSCULOSKELETAL: Extremities without clubbing, cyanosis, or edema. NEUROLOGICAL: Awake and alert. Motor and sensory grossly within normal limits. Normal speech. Lab results reviewed: Yes Laboratory Tests Test 04/05/17 14:45 04/05/17 22:30 04/06/17 05:08 Total Creatine Kinase 210 173 Troponin I LESS THAN 0.02 LESS THAN 0.02 Blood Urea Nitrogen 14 Creatinine 0.88 Random Glucose 98 Calcium Level 9.3 Sodium Level 142 Potassium Level 3.4 Chloride Level 106 Carbon Dioxide Level 30.1 Anion Gap 6 Estimat Glomerular Filtration Rate 97 Result Diagram: 04/05/17 1015 04/06/17 0508 Personally reviewed images: Yes Imaging Last Impressions Abdomen/Pelvis CT 04/05/17 1007 Signed Impressions: Service Date/Time: Wednesday, April 05, 2017 10:25 - CONCLUSION: 1. 3 mm stone right UVJ with [id number] obstruction. 2. No residual renal stones 3. Mild fatty replacement liver. Manuel Maloney MD FACR Chest X-Ray 04/05/17 0000 Signed Impressions: Service Date/Time: Wednesday, April 05, 2017 12:19 - CONCLUSION: Mild cardiac prominence Manuel Maloney MD FACR Assessment and Plan Problem List: (1) Kidney stone ICD Code: N20.0 - Calculus of kidney Assessment and Plan At this time the patient is without pain or any discomfort. It is likely he passed this small 3 mm stone. Patient is cleared for discharge from urology standpoint. He may followup in clinic in a few weeks Dequan Torres MD Apr 06, 2017 12:42
--- NOTE | 2017-04-06 13:00 | PD.PSY.CON ---
Provisional Diagnosis Admission Date Apr 05, 2017 at 13:17 [place]. Bipolar History of Present Illness Service Psychiatry Consult Requested By Attending physician. Reason for Consult Cardiac issues possibly related to psychotropic medicines. Primary Care Physician Brad Donaldson MD HPI Patient treated with same medicines for 3-4 years, including Abilify, Wellbutrin and Lamictal. He does not wish to change medicines and has been told by cardiology that his cardiac conduction system is acceptable. This physician finds no reason to change psychotropic medicines at this time. Review of Systems Except as stated in HPI: all other systems reviewed are Neg Past Family Social History Coded Allergies: No Known Allergies (Verified Allergy, Unknown, 04/05/17) Reported Medications Hydrochlorothiazide (Hydrochlorothiazide) 12.5 Mg Cap, PO DAILY, #30 CAP 0 Refills 04/05/17 Aripiprazole (Abilify) 30 Mg Tab, 30 MG PO DAILY, #30 TAB 0 Refills 04/05/17 Current Medications Medications (Trade) Dose Ordered Sig/Shay Route Start Time Stop Time Status Last Admin (NS Flush) 2 ml UNSCH PRN IV FLUSH 04/05/17 14:30 (NS Flush) 2 ml BID IV FLUSH 04/05/17 21:00 04/06/17 08:43 (Tylenol) 650 mg Q4H PRN PO 04/05/17 14:30 04/06/17 12:09 (Zofran Inj) 4 mg Q6H PRN IVP 04/05/17 14:30 (Narcan Inj) 0.4 mg UNSCH PRN IV PUSH 04/05/17 14:30 (Morphine Inj) 3 mg Q3H PRN IV PUSH 04/05/17 20:00 ([place] 5-325 Mg) 1 tab Q4H PRN PO 04/05/17 20:00 (Maxzide 37.5-25 Mg) 0.5 tab DAILY PO 04/06/17 09:00 04/06/17 10:49 (Protonix) 20 mg Q12HR PO 04/05/17 21:45 04/06/17 08:43 (Pill Splitter) 1 ea UNSCH PRN OTHER 04/05/17 21:45 Family Psych History Positive for mood disorders. Social History Denies drug and alcohol abuse. Patient's Strengths (min. 2) Verbal and has access to healthcare. Physical Exam GENERAL: SKIN: Warm and dry. HEAD: Normocephalic. EYES: No scleral icterus. No injection or drainage. NECK: Supple, trachea midline. No JVD or lymphadenopathy. CARDIOVASCULAR: Regular rate and rhythm without murmurs, gallops, or rubs. RESPIRATORY: Breath sounds equal bilaterally. No accessory muscle use. GASTROINTESTINAL: Abdomen soft, non-tender, nondistended. MUSCULOSKELETAL: No cyanosis, or edema. BACK: Nontender without obvious deformity. No CVA tenderness. Vital Signs Vital Signs Date Time Temp Pulse Resp B/P (MAP) Pulse Ox O2 Delivery O2 Flow Rate FiO2 04/06/17 12:12 97.6 62 20 143/90 (107) 98 04/06/17 08:30 Room Air I/O 04/06/17 04/06/17 04/07/17 08:00 16:00 00:00 Intake Total 960 ml Output Total 800 ml Balance 160 ml Lab Results Test 04/05/17 14:45 04/05/17 22:30 04/06/17 05:08 Total Creatine Kinase 210 U/L 173 U/L Troponin I LESS THAN 0.02 NG/ML LESS THAN 0.02 NG/ML Blood Urea Nitrogen 14 MG/DL Creatinine 0.88 MG/DL Random Glucose 98 MG/DL Calcium Level 9.3 MG/DL Sodium Level 142 MEQ/L Potassium Level 3.4 MEQ/L Chloride Level 106 MEQ/L Carbon Dioxide Level 30.1 MEQ/L Anion Gap 6 MEQ/L Estimat Glomerular Filtration Rate 97 ML/MIN Mental Status Examination Appearance: Appropriate Consciousness: Alert Orientation: x4 Motor Activity: Normal gait Speech: Unremarkable Language: Adequate Fund of Knowledge: Adequate Attention and Concentration: Adequate Memory: Unremarkable Mood: Appropriate Affect: Appropriate Thought Process & Associations: Intact Thought Content: Appropriate Hallucination Type: None Delusion Type: None Suicidal Ideation: No Suicidal Plan: No Suicidal Intention: No Homicidal Ideation: No Homicidal Plan: No Homicidal Intention: No Insight: Adequate Judgment: Adequate Assessment & Plan Problem List: (1) History of depressed bipolar disorder ICD Codes: F31.70 - Bipolar disorder, currently in remission, most recent episode unspecified Assessment & Plan Estimated LOS: days this physician does not recommend a change of patient's psychotropic medicines. Trenton Herrera MD Apr 06, 2017 13:00
[2017-04-06] MEDS ORDERED: HYDR-3516 PO (13:21)
--- NOTE | 2017-04-06 13:25 | HHI.PR ---
Subjective Remarks Patient has no further flank pain. Eating lunch. He would like to go home. Has been seen by cardiology, urology and psychiatry. Objective Vitals Vital Signs Date Time Temp Pulse Resp B/P (MAP) Pulse Ox O2 Delivery O2 Flow Rate FiO2 04/06/17 12:12 97.6 62 20 143/90 (107) 98 04/06/17 08:30 Room Air 04/06/17 08:30 98.3 82 20 135/83 (100) 95 04/06/17 06:59 65 04/06/17 06:00 68 04/06/17 05:00 59 04/06/17 04:00 98.7 56 18 130/69 (89) 97 04/06/17 04:00 56 04/06/17 04:00 Room Air 04/06/17 03:00 47 04/06/17 02:00 50 04/06/17 01:00 45 04/06/17 00:00 Room Air 04/06/17 00:00 98.3 43 18 136/84 (101) 98 04/06/17 00:00 43 04/05/17 23:00 50 04/05/17 22:00 58 04/05/17 21:00 60 04/05/17 20:00 98.1 64 18 136/72 (93) 97 04/05/17 20:00 64 04/05/17 18:01 55 04/05/17 16:30 98.3 53 18 140/74 (96) 96 04/05/17 15:30 82 18 129/62 (84) 98 04/05/17 14:16 53 17 154/70 (98) 97 Room Air I/O 04/05/17 04/05/17 04/05/17 04/06/17 04/06/17 04/06/17 07:00 15:00 23:00 07:00 15:00 23:00 Intake Total 1000 ml 240 ml 960 ml Output Total 300 ml 450 ml 800 ml Balance 700 ml -210 ml 160 ml Intake Oral 240 ml 960 ml IV Total 1000 ml Output Urine Total 300 ml 450 ml 800 ml # Voids 1 1 # Bowel Movements 0 Result Diagram: 04/05/17 1015 04/06/17 0505 Objective Remarks GENERAL: Well-nourished, well-developed very pleasant male patient. SKIN: Warm and dry. HEAD: Normocephalic. EYES: No scleral icterus. No injection or drainage. NECK: Supple, trachea midline. No JVD or lymphadenopathy. CARDIOVASCULAR: Regular rate and rhythm without murmurs, gallops, or rubs. RESPIRATORY: Breath sounds equal bilaterally. No accessory muscle use. GASTROINTESTINAL: Abdomen soft, non-tender, nondistended. EXTREMITIES: No cyanosis, or edema. NEUROLOGICAL: Awake, alert, and oriented x 3. Non-focal. A/P Problem List: (1) Bradyarrhythmia ICD Code: I49.8 - Other specified cardiac arrhythmias Status: Acute (2) Nephrolithiasis ICD Code: N20.0 - Calculus of kidney Status: Acute (3) Bipolar disorder ICD Code: F31.9 - Bipolar disorder, unspecified Assessment and Plan Mr. Parra is a very pleasant 37-year-old male with a history of hypertension, bipolar disorder, and GERD who presented to the [place] emergency room on complaining of severe right flank pain. In abdominal/pelvis ultrasound showed 3 mm stone in the right ureterovesical junction with mild to moderate obstruction and no residual stones. Mild fatty liver was also noted. While in the emergency room, he was noted to have heart rate in the 30's and supraventricular bradyarrhythmia on 12-lead EKG with short MI interval and P waves connecting to T waves with nonspecific ST changes (HR 40). His most recent EKG in our EMR prior to that was 06/12/2010 and it showed sinus rhythm and first-degree AV block and nonspecific ST-T changes. Cardiology was consulted and the patient was transferred [facility] for further evaluation and treatment. Nephrolithiasis with mild to moderate obstruction of right UVJ - 3 mm stone -Symptomatically the stone appears to have passed -Seen by urology -Discharge home with Lortab prescription bradyarrhythmia, asymptomatic - resolved -Seen by cardiology, recommends outpatient follow-up with echocardiogram and Holter monitor - patient counseled to call advanced cardiology for appointment -Seen by psychiatry who did not think it was related to psychiatric medications Bipolar disorder - Plan to hold Abilify as possible iatrogenic cause of bradyarrhythmia - Psychiatry consulted to assist with medication management - Patient sees Dr. Darlene López as an outpatient Hypertension - Resume home Maxzide - Follow trends in blood pressure readings and adjust treatment if indicated GERD - Resume home pantoprazole DVT prophylaxis - Early ambulation Shelby Lao MD Apr 06, 2017 13:25
--- NOTE | 2017-04-07 23:44 | EKG ---
Date Performed: 04/05/2017 Time Performed: 10:54:58 PTAGE: 37 years EKG: JUNCTIONAL RHYTHM MODERATE ST DEPRESSION ABNORMAL ECG PREVIOUS TRACING : 06/12/2010 14.19 DOCTOR: Chas Malone Interpretating Date/Time 04/07/2017 23:42:31
== END 2017-04-06 15:25 | disposition home or self-care (01) | DRG 694 ==
LOC: PHED 09:04 → PHEDA 13:17 → HCIS 16:09
PROVIDERS: ADMIT Family Medicine; ATTEND Family Medicine
DX: N20.2 Calculus of kidney with calculus of ureter (principal); K75.81 Nonalcoholic steatohepatitis (NASH); I10 Essential (primary) hypertension; R00.1 Bradycardia, unspecified; F31.70 Bipolar disorder, currently in remission, most recent episode unspecified; K21.9 Gastro-esophageal reflux disease without esophagitis; Z86.010 Personal history of colon polyps
CPT/HCPCS: 71010; 74177; 80048; 80053; 81001; 82550; 83690; 84484; 85025; 85610; 85730; 93005; 96361; 96374; 96375; J1885; J2270; J2405; J7030; Q9967